=== PATIENT | male | born 1945 | race Caucasian/White ===

== ENCOUNTER → 2016-12-16 | Outpatient (CLI) | payer MEDICARE, BC ==
--- NOTE | 2016-12-16 14:30 | XR ---
EXAMINATION TYPE: XR abdomen 1V DATE OF EXAM: 12/16/2016 2:14 PM COMPARISON: NONE INDICATION: Stones right side TECHNIQUE: Single view abdomen FINDINGS: There is a normal bowel gas pattern. Psoas margins are normal. No organomegaly is present. A 1.3 cm calcification may be in the mid right kidney. Additional smaller adjacent calcifications may be present. These are not as dense as typically identified. IMPRESSION: 1. Right mid kidney renal stones
== END | disposition home or self-care (01) ==
LOC: RADXRMAIN 13:57
PROVIDERS: ATTEND Urology
DX: N20.0 Calculus of kidney (principal)
CPT/HCPCS: 74000; 84153

== ENCOUNTER → 2017-01-08 | Outpatient (CLI) | payer MEDICARE, BC ==
--- NOTE | 2017-01-08 12:01 | CT ---
EXAMINATION TYPE: CT abdomen pelvis wo con DATE OF EXAM: 01/08/2017 11:44 AM COMPARISON: NONE HISTORY: Patient has no complaints at time of study. Patient has probable right side renal stone. CT DLP: 1119 mGycm Automated exposure control for dose reduction was used. TECHNIQUE: Helical acquisition of images was performed from the lung bases through the pelvis. FINDINGS: LUNG BASES: Some reticulation with patchy groundglass opacity in the right lung base is present. Ther e is additional 7 x 4 mm oval nodular opacity right lateral lung base on axial image 1. LIVER/GB: Liver is diffusely low dense consistent with fatty infiltration. PANCREAS: No significant abnormality is seen. SPLEEN: No significant abnormality is seen. ADRENALS: No significant abnormality is seen. KIDNEYS: No renal stones or hydronephrosis is evident bilaterally. Thin linear density posteriorly in the bladder could reflect milk of calcium, tiny stones, debris, or some bladder wall calcification. Debris is favored given enlarged prostate gland. Scattered pelvic phleboliths are noted. RETROPERITONEAL ADENOPATHY: None visualized REPRODUCTIVE ORGANS: Prostate gland is heterogeneous in appearance and enlarged in size consistent wi th BPH, clinical correlation advised URINARY BLADDER: No significant abnormality is seen. PELVIC ADENOPATHY: None visualized. OSSEOUS STRUCTURES: There is multilevel spurring in the spine. There is transitional-type L6 vertebr a. There is subchondral cystic change and spurring right L5 L6 level. BOWEL: Evaluation bowel suboptimal due to lack of enteric contrast. No suspicious small or large bow el dilatation is present. There are scattered colonic diverticula most pronounced in the sigmoid colo n. There is no CT evidence for diverticulitis. Poor distention of transverse colon makes evaluation a t this level suboptimal. Mild wall thickening is present could be product of poor distention, a colit is is not entirely excluded. Normal-appearing appendix is seen and hernia right upper pelvis lateral to the rectus sheath or femoral type hernia superior to inguinal canal. OTHER: There is moderate to large sized fat-containing right inguinal hernia. There is small to moder ate-sized left inguinal hernia containing fat and small vessels. There is small fat-containing umbili salina hernia. IMPRESSION: 1. NO RENAL STONES OR HYDRONEPHROSIS IS EVIDENT BILATERALLY. 2. Enlarged prostate gland is redemonstrated and correlates with prostate ultrasound June 28, 2016. 3. A 7 x 4 mm nodule right lung base is noted. Follow-up chest CT is advised to assess for additional pulmonary nodules. 4. Note is made of femoral hernia containing normal-appearing appendix. Bilateral inguinal hernias ar e also noted.
== END | disposition home or self-care (01) ==
LOC: RADCTMAIN 11:26
PROVIDERS: ATTEND Urology
DX: N40.0 Benign prostatic hyperplasia without lower urinary tract symptoms (principal); K40.20 Bilateral inguinal hernia, without obstruction or gangrene, not specified as recurrent; K41.90 Unilateral femoral hernia, without obstruction or gangrene, not specified as recurrent
CPT/HCPCS: 74176

== ENCOUNTER → 2017-04-03 | Outpatient (CLI) | payer MEDICARE, BC ==
[2017-04-03 12:02] LABS: Blood Urea Nitrogen 37 mg/dL (9-20); Non-African American GFR(MDRD) 53 (>60 ml/min/1.73 sqM)
--- NOTE | 2017-04-03 14:23 | CT ---
EXAMINATION TYPE: CT ChestAbdPelvis w con DATE OF EXAM: 04/03/2017 1:52 PM COMPARISON: Prior CT abdomen pelvis January HISTORY: Non specific abnormal finding in lung field, UTI vs. kidney stones CT DLP: 1159.9 mGycm Automated exposure control for dose reduction was used. CONTRAST: CT scan of the chest, abdomen and pelvis is performed with Oral Contrast and with IV Contrast, patien t injected with 80 mL of Visipaque 320. FINDINGS: LUNGS: Subcentimeter nodularity is present bilaterally, the nodules are noncalcified, there is nodule in the left lower lobe, subpleural nodular in location, right lower lobe there are 3 nodules. MEDIASTINUM: There are no greater than 1 cm hilar or mediastinal lymph nodes. No pericardial effusi on is seen. AORTA: No significant abnormality is seen. OTHER: No additional significant abnormality is seen. LIVER/GB: The liver shows low attenuation possibly due to fatty infiltration, gallbladder is normal PANCREAS: No significant abnormality is seen. SPLEEN: No significant abnormality is seen. ADRENALS: No significant abnormality is seen. KIDNEYS: Distal right ureteral calculus is present measuring 12 x 5 mm at the level of ureterovesical orifice. There is hydronephrosis of the right kidney. Probable calculus at the level of the distal l eft ureteral ureter, high attenuation is present in the dependent portion of the bladder this level REPRODUCTIVE ORGANS: Prostate is enlarged and shows associated calcification BOWEL: Diverticular changes associated with the sigmoid colon, there is no bowel obstruction FREE AIR: No Free Air visible. ASCITES: None seen. RETROPERITONEAL ADENOPATHY: No retroperitoneal adenopathy is seen. LYMPH NODES: No greater than 1 cm abdominal or pelvic lymph nodes are appreciated. URINARY BLADDER: Findings of the distal ureter level as described PELVIC ADENOPATHY: None visualized. OSSEOUS STRUCTURES: No significant abnormality is seen. There are bilateral inguinal hernias. The appendix is present within the inguinal hernia on the right IMPRESSION: Distal right ureteral calculus at the level of ureterovesical orifice with hydroureter an d hydronephrosis. Possible distal left calcification, there is high attenuation in the dependent port ion of the bladder at this level. Diverticulosis. Prostatic enlargement. Fatty infiltration of the li allen. Indeterminate lower lobe lung nodules, follow-up to assess for stability, differential includes granulomatous disease but infectious and noninfectious, metastatic disease is within the differential .
== END | disposition home or self-care (01) ==
LOC: RADCTMAIN 11:14
PROVIDERS: ATTEND Family Medicine
DX: R91.8 Other nonspecific abnormal finding of lung field (principal); N20.1 Calculus of ureter; N13.4 Hydroureter; N13.30 Unspecified hydronephrosis; N40.0 Benign prostatic hyperplasia without lower urinary tract symptoms; K76.0 Fatty (change of) liver, not elsewhere classified
CPT/HCPCS: 82565; 84520; 71260; 74177; 36415; Q9967

== ENCOUNTER → 2017-05-06 | Outpatient (CLI) | payer MEDICARE, BC | END | disposition home or self-care (01) | LOC: LABWHC1 10:16 | PROVIDERS: ATTEND Urology | DX: R97.20 Elevated prostate specific antigen [PSA] (principal) | CPT/HCPCS: 36415; 84153 ==

== ENCOUNTER → 2017-10-16 | Outpatient (CLI) | payer MEDICARE, BC ==
--- NOTE | 2017-10-16 09:42 | CT ---
EXAMINATION TYPE: CT chest wo con DATE OF EXAM: 10/16/2017 COMPARISON: 04/03/2017 HISTORY: Solitary Pulmonary Nodule CT DLP: 381.9 mGycm, Automated exposure control for dose reduction was used. CONTRAST: Performed injected with 0 mL of Omnipaque 300. TECHNIQUE: Axial images were obtained at 5 mm thick sections. Reconstructed images are reviewed on [facility] computer in the coronal plane. FINDINGS: Portion of the thyroid visualized is normal. Subglottic airway is normal. There is a 0.4 cm peripheral based nodule within the right upper lobe. Series 4 image 27. This was pr esent previously. There is a peripheral nodule in the posterior lateral left upper lung field with a depth of 0.5 cm. This was present previously and is stable. Some lingular pneumonitis is present at t same level appears more extensive than previous. There is a 0.4 cm nodule in the posterior medial right superior segment lower lobe. Series 4 image 35 . This was present previously. There is a 0.6 cm nodule posterior medial right lung which is stable m easuring 0.6 cm. Series 4 image 36. Some pneumonitis changes within the right middle lobe appears unc hanged. There may be a subtle low density nodule within this region measuring 0.3 cm, present previou sly. Series 4 image 40. Some pneumonitis changes in the posterior right lung base. There is a oval no dule in the periphery of the right lower lobe posterior lateral lobe with a depth of 0.4 cm stable pr esent previously. Series 4 image 45. No enlarged mediastinal or hilar adenopathy is evident. The ascending aorta diameter at the level o f the main pulmonary artery is 3.8 cm. The main pulmonary artery diameter at the bifurcation is 2.3 cm. Minimal coronary artery calcifications present. Limited CT sections are obtained through the upper abdomen. Abdomen is essentially unremarkable. IMPRESSIONS: 1. Scattered small stable nodules present bilaterally. Continued monitoring to confirm stability over the course of 2 years is recommended. Follow-up chest CT in 6 months can be performed. 2. There are some areas of pneumonitis within the right middle lobe and periphery of the lingula whic h are slightly changed. These can be followed in 6 months.
== END | disposition home or self-care (01) ==
LOC: RADCTMAIN 06:57
PROVIDERS: ATTEND Family Medicine
DX: J18.9 Pneumonia, unspecified organism (principal); R91.8 Other nonspecific abnormal finding of lung field
CPT/HCPCS: 71250

== ENCOUNTER → 2018-04-21 | Outpatient (CLI) | payer MEDICARE, BC ==
--- NOTE | 2018-04-21 10:00 | CT ---
EXAMINATION TYPE: CT chest wo con DATE OF EXAM: 04/21/2018 COMPARISON: 10/16/2017, 04/03/2017 HISTORY: 72-year-old male Multiple lung nodules TECHNIQUE: Contiguous axial scanning of the chest without IV contrast. Coronal and sagittal reconstru ctions performed. CT DLP: 631 mGycm Automated exposure control for dose reduction was used. FINDINGS: Heart is normal size without pericardial effusion. Ascending aorta is ectatic at 3.8 cm. Conventional arch vessel branching anatomy. Upper descending th oracic aorta borderline ectatic at 3.0 cm. Mild bilateral gynecomastia. Scattered nonenlarged mediastinal lymph nodes. No thoracic lymphadenopat hy by CT size criteria. Some patchy subpleural interstitial and reticular changes anterior left upper lobe was present back o n 04/03/2017, possible chronic scarring. There is some associated traction bronchiectasis in the superi or lingula. Mild patchy groundglass peripheral lower lobes and basilar right middle lobe as well. Scattered bilateral pulmonary nodules measuring up to 7 mm are unchanged from 04/03/2017. Stability for one year suggests a benign etiology. Additional one-year follow-up is recommended No consolidation or pleural effusion. Small hiatal hernia. Visualized upper abdomen shows no gross abnormality. Hilar splenule. Bones: Endplate spondylosis mid to lower thoracic spine. No osseous destructive process. IMPRESSION: 1. SCATTERED PULMONARY NODULES MEASURING UP TO 7 MM ARE UNCHANGED FOR ONE YEAR. ADDITIONAL ONE-YEAR F OLLOW-UP IS RECOMMENDED TO DOCUMENT 2 YEARS OF STABILITY. 2. MILD PATCHY PERIPHERAL GROUNDGLASS AND RETICULAR DENSITIES MID AND LOWER LUNGS. THIS IS ALSO RELAT IVELY UNCHANGED FOR ONE YEAR. CORRELATE FOR POSSIBLE ETIOLOGIES SUCH DIP, NSIP, AND CHRONIC INTERS TITIAL SCARRING FROM PRIOR BOUTS OF INFECTION/INFLAMMATION. 3. SMALL HIATAL HERNIA.
== END | disposition home or self-care (01) ==
LOC: RADCTMAIN 08:44
PROVIDERS: ATTEND Family Medicine
DX: J98.4 Other disorders of lung (principal); K44.9 Diaphragmatic hernia without obstruction or gangrene; R91.8 Other nonspecific abnormal finding of lung field
CPT/HCPCS: 71250

== ENCOUNTER 2018-05-18 07:19 | Emergency (ER) | payer MEDICARE, BC ==
[2018-05-18 07:24] VITALS: RESP 18; TEMP 98.2
[2018-05-18] MEDS ORDERED: SODIUM CHLORIDE 0.9% 500 ML IV STA (07:43)
--- NOTE | 2018-05-18 08:00 | ED ---
General Adult HPI - General Chief complaint: Dizziness Stated complaint: Dizzy, High Blood Pressure Time Seen by Provider: 05/18/18 07:34 Source: patient, RN notes reviewed, old records reviewed Mode of arrival: wheelchair Limitations: no limitations - History of Present Illness Initial comments: 72-year-old male with no significant past medical history presents for evaluation of lightheadedness and what he believes to anxiety. 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 He also states also is being painted and he feels that the individuals painting his house for not doing a very good job. He believes that his symptoms are related to anxiety today however he felt he wanted to be checked out. He states that this morning he woke up felt somewhat lightheaded. He had been getting up to go to the bathroom which is typical for him as he does have BPH and remote history of prostate cancer. He states he felt lightheaded and diaphoretic. Denied any chest pain or palpitations at this time. Denied abdominal pain. He states he had some mild nausea however there is no vomiting. No diarrhea. He was otherwise well yesterday. - Related Data Home Medications Medication Instructions Recorded Confirmed Antronex 1 tab PO DAILY PRN 05/18/18 05/18/18 Aspirin 325 mg PO ONCE PRN 05/18/18 05/18/18 Calcium Carbonate [Calcium] 600 mg PO DAILY 05/18/18 05/18/18 Cetirizine HCl [Zyrtec] 10 mg PO DAILY 05/18/18 05/18/18 Cyanocobalamin (Vitamin B-12) 1,000 mcg PO DAILY 05/18/18 05/18/18 [Vitamin B-12] Naproxen Sodium [Aleve] 220 - 440 mg PO BID PRN 05/18/18 05/18/18 Tamsulosin HCl [Flomax] 0.4 mg PO HS 05/18/18 05/18/18 Vitamin D3(Unknown Dose) 1 tab PO DAILY 05/18/18 05/18/18 Allergies Allergy/AdvReac Type Severity Reaction Status Date / Time ciprofloxacin [From Cipro] Allergy Rash/Hives/ Verified 05/18/18 08:19 Swelling Review of Systems ROS Statement: Those systems with pertinent positive or pertinent negative responses have been documented in the HPI. ROS Other: All systems not noted in ROS Statement are negative. Past Medical History Past Medical History: Cancer Additional Past Medical History / Comment(s): prostate cancer History of Any Multi-Drug Resistant Organisms: None Reported Past Psychological History: Anxiety Smoking Status: Never smoker Past Alcohol Use History: Rare Past Drug Use History: None Reported General Exam Limitations: no limitations General appearance: alert, in no apparent distress Head exam: Present: atraumatic, normocephalic Eye exam: Present: normal appearance, PERRL ENT exam: Present: normal exam Neck exam: Present: normal inspection. Absent: tenderness, meningismus Respiratory exam: Present: normal lung sounds bilaterally. Absent: respiratory distress, wheezes Cardiovascular Exam: Present: regular rate, normal rhythm GI/Abdominal exam: Present: soft. Absent: distended, tenderness Extremities exam: Present: normal inspection, normal capillary refill. Absent: pedal edema Neurological exam: Present: alert, oriented X3, CN II-XII intact, other (No ataxia,). Absent: motor sensory deficit Psychiatric exam: Present: anxious Skin exam: Present: warm, dry, intact. Absent: cyanosis, diaphoretic Course Vital Signs 05/18/18 05/18/18 07:22 09:27 Temperature 98.2 F Pulse Rate 73 60 Respiratory 18 18 Rate Blood Pressure 164/81 161/80 O2 Sat by Pulse 98 100 Oximetry EKG Findings - EKG Comments: EKG Findings:: EKG: Sinus bradycardia, left axis deviation, no ST segment changes, rate of 55, AL interval 150, QRS duration 88, QTC 441 Medical Decision Making - Medical Decision Making 72-year-old male presenting with lightheadedness. Patient is stress, feels this may be related to his anxiety. Denies any focal weakness or numbness. Denies chest pain or shortness of breath. EKG shows sinus bradycardia rate of 55 no definitive signs of ischemia her workup reveals normal CBC, normal white blood cell count 5.8, stable hemoglobin of 14.1, normal electrolytes. Troponin is negative. Urinalysis is negative. Chest x-ray shows no acute findings. On reevaluation patient is feeling much better. He has a nonfocal neuro exam. No ataxia. Patient is mildly hypertensive but otherwise vitals are stable. He is eager for discharge, he will follow-up with his primary care physician. He will return with any worsening or changing symptoms. - Lab Data Result diagrams: 05/18/18 08:20 05/18/18 08:20 Lab Results 05/18/18 05/18/18 05/18/18 Range/Units 08:20 08:20 08:20 WBC 5.8 (3.8-10.6) k/uL RBC 4.55 (4.30-5.90) m/uL Hgb 14.1 (13.0-17.5) gm/dL Hct 39.6 (39.0-53.0) % MCV 87.0 (80.0-100.0) fL MCH 31.0 (25.0-35.0) pg MCHC 35.6 (31.0-37.0) g/dL RDW 12.0 (11.5-15.5) % Plt Count 204 (150-450) k/uL Neutrophils % 78 % Lymphocytes % 11 % Monocytes % 7 % Eosinophils % 2 % Basophils % 1 % Neutrophils # 4.5 (1.3-7.7) k/uL Lymphocytes # 0.6 L (1.0-4.8) k/uL Monocytes # 0.4 (0-1.0) k/uL Eosinophils # 0.1 (0-0.7) k/uL Basophils # 0.0 (0-0.2) k/uL PT 10.8 (9.0-12.0) sec INR 1.1 (<1.2) Sodium 141 (137-145) mmol/L Potassium 4.2 (3.5-5.1) mmol/L Chloride 104 (98-107) mmol/L Carbon Dioxide 24 (22-30) mmol/L Anion Gap 13 mmol/L BUN 28 H (9-20) mg/dL Creatinine 1.06 (0.66-1.25) mg/dL Est GFR (CKD-EPI)AfAm 80 (>60 ml/min/1.73 sqM) Est GFR (CKD-EPI)NonAf 69 (>60 ml/min/1.73 sqM) Glucose 116 H (74-99) mg/dL Calcium 9.4 (8.4-10.2) mg/dL Total Bilirubin 0.5 (0.2-1.3) mg/dL AST 29 (17-59) U/L ALT 31 (21-72) U/L Alkaline Phosphatase 47 (38-126) U/L Troponin I (0.000-0.034) ng/mL Total Protein 6.9 (6.3-8.2) g/dL Albumin 4.3 (3.5-5.0) g/dL Urine Color Urine Appearance (Clear) Urine pH (5.0-8.0) Ur Specific Prince (1.001-1.035) Urine Protein (Negative) Urine Glucose (UA) (Negative) Urine Ketones (Negative) Urine Blood (Negative) Urine Nitrite (Negative) Urine Bilirubin (Negative) Urine Urobilinogen (<2.0) mg/dL Ur Leukocyte Esterase (Negative) Urine RBC (0-5) /hpf Urine WBC (0-5) /hpf Urine Mucus (None) /hpf 05/18/18 05/18/18 Range/Units 08:20 08:20 WBC (3.8-10.6) k/uL RBC (4.30-5.90) m/uL Hgb (13.0-17.5) gm/dL Hct (39.0-53.0) % MCV (80.0-100.0) fL MCH (25.0-35.0) pg MCHC (31.0-37.0) g/dL RDW (11.5-15.5) % Plt Count (150-450) k/uL Neutrophils % % Lymphocytes % % Monocytes % % Eosinophils % % Basophils % % Neutrophils # (1.3-7.7) k/uL Lymphocytes # (1.0-4.8) k/uL Monocytes # (0-1.0) k/uL Eosinophils # (0-0.7) k/uL Basophils # (0-0.2) k/uL PT (9.0-12.0) sec INR (<1.2) Sodium (137-145) mmol/L Potassium (3.5-5.1) mmol/L Chloride (98-107) mmol/L Carbon Dioxide (22-30) mmol/L Anion Gap mmol/L BUN (9-20) mg/dL Creatinine (0.66-1.25) mg/dL Est GFR (CKD-EPI)AfAm (>60 ml/min/1.73 sqM) Est GFR (CKD-EPI)NonAf (>60 ml/min/1.73 sqM) Glucose (74-99) mg/dL Calcium (8.4-10.2) mg/dL Total Bilirubin (0.2-1.3) mg/dL AST (17-59) U/L ALT (21-72) U/L Alkaline Phosphatase (38-126) U/L Troponin I <0.012 (0.000-0.034) ng/mL Total Protein (6.3-8.2) g/dL Albumin (3.5-5.0) g/dL Urine Color Yellow Urine Appearance Clear (Clear) Urine pH 5.0 (5.0-8.0) Ur Specific Prince 1.015 (1.001-1.035) Urine Protein Negative (Negative) Urine Glucose (UA) Negative (Negative) Urine Ketones Negative (Negative) Urine Blood Trace H (Negative) Urine Nitrite Negative (Negative) Urine Bilirubin Negative (Negative) Urine Urobilinogen <2.0 (<2.0) mg/dL Ur Leukocyte Esterase Negative (Negative) Urine RBC 2 (0-5) /hpf Urine WBC <1 (0-5) /hpf Urine Mucus Rare H (None) /hpf Disposition Clinical Impression: Dehydration, Lightheaded Disposition: HOME SELF-CARE Condition: Good Instructions: Dizziness (ED) Additional Instructions: Please return with any worsening or changing symptoms. Follow-up with primary care physician. Is patient prescribed a controlled substance at d/c from ED?: No Referrals: Wayne Hall MD [Primary Care Provider] - 1-2 days Time of Disposition: 10:07
[2018-05-18 08:32] LABS: Basophils % (A) 1 %; Eosinophils # (A) 0.1 k/uL (0-0.7); Eosinophils % (A) 2 %; HCT 39.6 % (39.0-53.0); HGB 14.1 gm/dL (13.0-17.5); Lymphocytes # (A) 0.6 k/uL (1.0-4.8); Lymphocytes % (A) 11 %; MCHC 35.6 g/dL (31.0-37.0); Mean Platelet Volume 6.1; Monocytes # (A) 0.4 k/uL (0-1.0); Monocytes % (A) 7 %; Neutrophils # (A) 4.5 k/uL (1.3-7.7); Neutrophils % (A) 78 %; Platelet Count 204 k/uL (150-450); RBC 4.55 m/uL (4.30-5.90); WBC 5.8 k/uL (3.8-10.6)
[2018-05-18 08:41] LABS: Albumin 4.3 g/dL (3.5-5.0); Calcium 9.4 mg/dL (8.4-10.2); Potassium 4.2 mmol/L (3.5-5.1); Total Bilirubin 0.5 mg/dL (0.2-1.3); Total Protein 6.9 g/dL (6.3-8.2)
[2018-05-18 08:42] LABS: INR 1.1 (<1.2); Prothrombin Time 10.8 sec (9.0-12.0)
[2018-05-18 08:51] LABS: Appearance,Urine Clear (Clear); Bilirubin,Urine Negative (Negative); Blood,Urine Trace (Negative); Color,Urine Yellow; Glucose,Urine (UA) Negative (Negative); Ketones,Urine Negative (Negative); Leukocyte Esterase,Urine Negative (Negative); Mucus,Urine Rare /hpf; Nitrite,Urine Negative (Negative); Protein,Urine Negative (Negative); RBC,Urine 2 /hpf (0-5); Specific Gravity,Urine 1.015 (1.001-1.035); Urobilinogen,Urine <2.0 mg/dL (<2.0); WBC,Urine <1 /hpf (0-5)
--- NOTE | 2018-05-18 09:42 | XR ---
EXAMINATION TYPE: XR chest 2V DATE OF EXAM: 05/18/2018 COMPARISON: Chest CT April 21, 2018. HISTORY: Syncope and weakness, history of prostate cancer TECHNIQUE: Frontal and lateral views of the chest are obtained. FINDINGS: There is chronic left mid to basilar reticulation and fibrosis predominantly peripheral. R ight lung appears grossly clear . No pleural effusion or pneumothorax is evident bilaterally. The car diac silhouette size is within normal limits. The osseous structures are intact. IMPRESSION: Chronic left lower lung parenchymal changes without suspicious acute pulmonary process.
[2018-05-18 10:13] VITALS: BP 140/61; PULSE 66
== END 2018-05-18 10:26 | disposition home or self-care (01) ==
LOC: EC 07:19
DX: E86.0 Dehydration (principal); R00.1 Bradycardia, unspecified; F41.9 Anxiety disorder, unspecified; R03.0 Elevated blood-pressure reading, without diagnosis of hypertension; C61 Malignant neoplasm of prostate; Z88.1 Allergy status to other antibiotic agents; Z79.899 Other long term (current) drug therapy
CPT/HCPCS: 36415; 71046; 80053; 81001; 84484; 85025; 85610; 93005; 96360; 99284

== ENCOUNTER → 2018-06-01 | Outpatient (CLI) | payer MEDICARE, BC ==
--- NOTE | 2018-06-01 17:19 | US ---
EXAMINATION TYPE: US carotid duplex BILAT DATE OF EXAM: 06/01/2018 COMPARISON: NONE CLINICAL HISTORY: R09.89 Symptom involving circ and resp systems. Pt states recent episode of dizzine ss EXAM MEASUREMENTS: RIGHT: Peak Systolic Velocity (PSV) cm/sec ----- Right CCA: 85.1 ----- Right ICA: 91.9 ----- Right ECA: 94.7 ICA/CCA ratio: 1.1 RIGHT: End Diastole cm/sec ----- Right CCA: 16.2 ----- Right ICA: 30.3 ----- Right ECA: 0.0 LEFT: Peak Systolic Velocity (PSV) cm/sec ----- Left CCA: 87.5 ----- Left ICA: 90.8 ----- Left ECA: 56.7 ICA/CCA ratio: 1.0 LEFT: End Diastole cm/sec ----- Left CCA: 14.9 ----- Left ICA: 27.0 ----- Left ECA: 0.0 VERTEBRALS (direction of flow): Right Vertebral: Antegrade Left Vertebral: Antegrade Rhythm: Normal No significant stenosis seen IMPRESSION: There is antegrade flow in the vertebral arteries. The images and measurements suggest l ess than 20% stenosis in both internal carotid arteries. Criteria for Assigning % of Stenosis / Diameter reduction (Estimation based on the indirect measurements of the internal carotid artery velocities (ICA PSV). 1. Normal (no stenosis)=ICA PSV < 125 cm/s: ratio < 2.0: ICA EDV<40 cm/s. 2. Less than 50% stenosis=ICA PSV < 125 cm/s: ratio < 2.0: ICA EDV<40 cm/s. 3. 50 to 69% stenosis=ICA PSV of 125 to 230 cm/s: ration 2.0 ? 4.0: ICA EDV 40-100 cm/s. 4. Greater than 70% stenosis to near occlusion= ICA PSV > 230 cm/s: ratio > 4.0: ICA EDV > 100 cm/s. 5. Near occlusion= ICA PSV velocities may be low or undetectable: variable ratio and ICA EDV. 6. Total occlusion=unable to detect flow.
== END | disposition home or self-care (01) ==
LOC: RADUSWWP 16:45
PROVIDERS: ATTEND Family Medicine
DX: R09.89 Other specified symptoms and signs involving the circulatory and respiratory systems (principal)
CPT/HCPCS: 93880

== ENCOUNTER → 2018-09-11 | Outpatient (CLI) | payer MEDICARE, BC ==
--- NOTE | 2018-09-11 10:01 | XR ---
EXAMINATION TYPE: XR KUB DATE OF EXAM: 09/11/2018 COMPARISON: None INDICATION: Kidney stone right TECHNIQUE: Single view abdomen spine view FINDINGS: There is a normal bowel gas pattern. Psoas margins are normal. No organomegaly is present. Patient's right renal or ureteral stone is not clearly identified. There appear to be phleboliths wit hin the pelvis. IMPRESSION: 1. Nonspecific abdomen.
== END ==
LOC: RADXRMAIN 09:10
PROVIDERS: ATTEND Urology
DX: N20.0 Calculus of kidney (principal)
CPT/HCPCS: 74018

== ENCOUNTER → 2021-06-05 | Outpatient (CLI) | payer MEDICARE, BC ==
--- NOTE | 2021-06-05 09:01 | CT ---
EXAMINATION TYPE: CT chest wo con DATE OF EXAM: 06/05/2021 COMPARISON: Chest CT April 21, 2018 and older studies HISTORY: Multiple lung nodules CT DLP: 334.6 mGycm. Automated Exposure Control for Dose Reduction was Utilized. TECHNIQUE: CT scan of the thorax is performed without IV contrast. FINDINGS: LUNGS: Mild biapical pleural/parenchymal scarring extending anteriorly redemonstrated. More moderate peripheral scarring in the anterior mid to lower lungs and moderate scarring and reticular changes in the lung bases. Scattered small nodules redemonstrated. For reference one of larger nodules measure 6 x 4 mm posterior superior right lower lobe axial image 36. This is stable. Stable 8 x 5 mm subpleur al nodule left lower lobe superiorly axial image 34 noted. No new or enlarging greater than 5 mm nodu les. No pleural effusion or pneumothorax. MEDIASTINUM: Lack of IV contrast is noted to limit evaluation for mediastinal and especially hilar ad enopathy. There are no definitive new greater than 1 cm hilar or mediastinal lymph nodes. No cardio megaly or pericardial effusion is seen. Mild coronary artery calcification. Heterogeneous calcified l eft thyroid lobe or nodule is stable. OTHER: Bilateral subareolar flame-shaped gynecomastia. Multilevel spurring in the spine. Visualized l iver low densities consistent with mild diffuse fatty infiltration. IMPRESSION: Scattered small nodules stable. Stable [id number] parenchymal fibrotic changes. No new or enlarging nodules.
== END | disposition home or self-care (01) ==
LOC: RADCTMAIN 07:20
PROVIDERS: ATTEND Family Medicine
DX: R91.8 Other nonspecific abnormal finding of lung field (principal); J84.10 Pulmonary fibrosis, unspecified
CPT/HCPCS: 71250

== ENCOUNTER → 2023-11-03 | Outpatient (CLI) | payer MEDICARE, BC ==
--- NOTE | 2023-11-03 11:47 | CA ---
Stress Echo Report Jan Staples Age: 77 Gender: M : 1945 Exam Date: 11/03/2023 10:31 Exam Location: [facility] Ht (in): 71 Wt (lb): 206 Ordering Physician: Wayne Hall MD Referring Physician: Isabel SOUSA Radio Sportscaster: Lillian CRUZ Technologist Procedure CPT: Indication: R06.00 Dyspnea ICD-9 Codes: Rhythm: Patient History: Cardiac Medications: Medications in past 24 hours: Contrast: N/A Stress Results Protocol: Timi Total dose(mL): Exercise Duration (min:sec): 3:[address] Depression (mm): Angina Score: Cabrera Score: METS: 4.6 Resting HR: 83 Resting BP: 158 / 91 Peak HR: 132 Peak BP: 199 / 105 Max Predicted HR: 141 94 % Max Predicted HR Target HR: 120 Double Product: [id number] Stress Summary: BP Response: Reason for Termination: Reached target heart rate or work-load Cardiac Symptoms: No Symptoms ECG Analysis Resting ECG: Stress ECG: Arrhythmia: Echo Analysis Resting Echo: Peak Echo Analysis: MEASUREMENTS (Male/Female) Normal Values CONCLUSIONS Good exercise tolerance Normal electrocardiogram and echocardiogram in response to exercise Dr. Wolf Pearce MD (Electronically Signed) Final Date: 03 November 2023 11:46
== END | disposition home or self-care (01) ==
LOC: RADNMMAIN 09:29
PROVIDERS: ATTEND Family Medicine
DX: R06.00 Dyspnea, unspecified (principal)
CPT/HCPCS: 93351

== ENCOUNTER 2024-05-16 11:46 | Inpatient (IN) | payer MEDICARE, BC ==
[2024-05-16] MEDS: HEPARIN SODIUM 1,000 UN/ML (10ML VL) IV ONE (11:57)
--- NOTE | 2024-05-16 12:00 | ED ---
General Adult HPI - General Stated complaint: STEMI Time Seen by Provider: 05/16/24 11:46 Source: patient, RN notes reviewed, old records reviewed - History of Present Illness Initial comments: This is an 78-year-old male who presents to the emergency department with a past medical history significant for high cholesterol. Patient states he had no heart disease in the past. Patient states he woke up this morning felt fine and also that he started getting severe chest tightness. Patient states that he is became very diaphoretic and then continued. Patient states when EMS arrived they gave him aspirin and eventually nitroglycerin he states the 2 nitroglycerin did seem to help relieve the pain even though he is still having it it is much improved. Patient denies any nausea or vomiting. Patient states he is mildly short of breath. Patient denies any recent fever chills or cough. Patient denies any back pain. Patient [place] any radiation of the pain - Related Data Home Medications Medication Instructions Recorded Confirmed Antronex 1 tab PO DAILY PRN 05/18/18 05/18/18 Aspirin 325 mg PO ONCE PRN 05/18/18 05/18/18 Calcium Carbonate [Calcium] 600 mg PO DAILY 05/18/18 05/18/18 Cetirizine HCl [Zyrtec] 10 mg PO DAILY 05/18/18 05/18/18 Cyanocobalamin (Vitamin B-12) 1,000 mcg PO DAILY 05/18/18 05/18/18 [Vitamin B-12] Naproxen Sodium [Aleve] 220 - 440 mg PO BID PRN 05/18/18 05/18/18 Tamsulosin HCl [Flomax] 0.4 mg PO HS 05/18/18 05/18/18 Vitamin D3(Unknown Dose) 1 tab PO DAILY 05/18/18 05/18/18 Allergies Allergy/AdvReac Type Severity Reaction Status Date / Time ciprofloxacin [From Cipro] Allergy Rash/Hives/ Verified 05/18/18 08:19 Swelling Review of Systems ROS Statement: Those systems with pertinent positive or pertinent negative responses have been documented in the HPI. ROS Other: All systems not noted in ROS Statement are negative. Past Medical History Past Medical History: Cancer Additional Past Medical History / Comment(s): prostate cancer History of Any Multi-Drug Resistant Organisms: None Reported Past Psychological History: Anxiety Past Alcohol Use History: Rare Past Drug Use History: None Reported General Exam - General Exam Comments Initial Comments: GENERAL: Patient is well-developed and well-nourished. Patient is nontoxic and well- hydrated and is in mild distress. ENT: Neck is soft and supple. No significant lymphadenopathy is noted. Oropharynx is clear. Moist mucous membranes. Neck has full range of motion without eliciting any pain. EYES: The sclera were anicteric and conjunctiva were pink and moist. Extraocular movements were intact and pupils were equal round and reactive to light. Eyelids were unremarkable. PULMONARY: Unlabored respirations. Good breath sounds bilaterally. No audible rales rhonchi or wheezing was noted. CARDIOVASCULAR: There is a regular rate and rhythm without any murmurs gallops or rubs. ABDOMEN: Soft and nontender with normal bowel sounds. SKIN: Skin is clear with no lesions or rashes and otherwise unremarkable. NEUROLOGIC: Patient is alert and oriented x3. Cranial nerves II through XII are grossly intact. Motor and sensory are also intact. Normal speech, volume and content. Symmetrical smile. MUSCULOSKELETAL: Normal extremities with adequate strength and full range of motion. LYMPHATICS: No significant lymphadenopathy is noted PSYCHIATRIC: Normal psychiatric evaluation. Medical Decision Making - Medical Decision Making EKG is interpreted by myself but EKG shows sinus tachycardia with occasional PVC at 108 bpm parable 174 QRS 94 QT interval 368 QTc is 431. Patient's EKG shows ST segment elevation in leads V1 and V2. Was pt. sent in by a medical professional or institution ([facility], TRAFFIC SIGNAL REPAIRER, urgent care, hospital, or custodial...) When possible be specific @ -No Did you speak to anyone other than the patient for history (EMS, parent, family, police, friend...)? What history was obtained from this source @ -EMS informed us of what they gave him and the response to the nitroglycerin they gave as well. Did you review nursing and triage notes (agree or disagree)? Why? @ -I reviewed and agree with nursing and triage notes Were old charts reviewed (outside hosp., previous admission, EMS record, old EKG, old radiological studies, urgent care reports/EKG's, custodial records)? Report findings @ -No old charts were reviewed Differential Diagnosis (chest pain, altered mental status, abdominal pain women, abdominal pain men, vaginal bleeding, weakness, fever, dyspnea, syncope, headache, dizziness, GI bleed, back pain, seizure, CVA, palpatations, mental health, musculoskeletal)? @ -Differential Chest Pain: Stable Angina, Unstable Angina, STEMI, NSTEMI Aortic Dissection, Pneumothorax, Musculoskeletal, Esophageal Spasm GERD, Cholecystitis, Pancreatitis, Zoster, this is not meant to be an all-inclusive list. EKG interpreted by me (3pts min.). @ -As above X-rays interpreted by me (1pt min.). @ -Chest x-ray showed no acute abnormality CT interpreted by me (1pt min.). @ -None done U/S interpreted by me (1pt. min.). @ -None done What testing was considered but not performed or refused? (CT, X-rays, U/S, labs)? Why? @ -None What meds were considered but not given or refused? Why? @ -None Did you discuss the management of the patient with other professionals (professionals i.e. , PA, TRAFFIC SIGNAL REPAIRER, lab, RT, psych nurse, social media job titles, vehicle monitor technician, teacher, environmental technical officer, field nurse case manager)? Give summary @ -I spoke with Dr. Mijares about the STEMI Was smoking cessation discussed for >3mins.? @ -No Was critical care preformed (if so, how long)? @ -35 minutes Were there social determinants of health that impacted care today? How? (Homelessness, low income, unemployed, alcoholism, drug addiction, transportation, low edu. Level, literacy, decrease access to med. care, care home, rehab)? @ -No Was there de-escalation of care discussed even if they declined (Discuss DNR or withdrawal of care, Hospice)? DNR status @ -No What co-morbidities impacted this encounter? (DM, HTN, Smoking, COPD, CAD, Cancer, CVA, ARF, Chemo, Hep., AIDS, mental health diagnosis, sleep apnea, morbid obesity)? @ -None Was patient admitted / discharged? Hospital course, mention meds given and route, prescriptions, significant lab abnormalities, going to OR and other pertinent info. @ -Patient was feeling better when he arrived after 2 nitroglycerin patient's vitals were stable. Patient was given 4000 of heparin. Patient will be taken to the [facility] by Dr. Mijares. STEMI was called overhead prior to the patient's arrival. Undiagnosed new problem with uncertain prognosis? @ -No Drug Therapy requiring intensive monitoring for toxicity (Heparin, Nitro, Insulin, Cardizem)? @ -No Were any procedures done? @ -No Diagnosis/symptom? @ -Default Acute, or Chronic, or Acute on Chronic? @ -STEMI acute Uncomplicated (without systemic symptoms) or Complicated (systemic symptoms)? @ -Complicated Side effects of treatment? @ -No Exacerbation, Progression, or Severe Exacerbation? @ -No Poses a threat to life or bodily function? How? (Chest pain, [place], CO, pneumonia, PE, COPD, DKA, ARF, appy, cholecystitis, CVA, Diverticulitis, Homicidal, Suicidal, threat to staff... and all critical care pts) @ -Yes this could lead to an CO heart damage and perfusion issues in the future with endorgan dysfunction Disposition Clinical Impression: STEMI (ST elevation myocardial infarction) Disposition: ADMITTED IP TO THIS HOSP Referrals: Wayne Hall MD [Primary Care Provider] - 1-2 days Time of Disposition: 11:59
[2024-05-16 12:02] LABS: Basophils # (A) 0.1 k/uL (0-0.2); Basophils % (A) 1 %; Eosinophils # (A) 0.2 k/uL (0-0.7); Eosinophils % (A) 2 %; HCT 47.1 % (39.0-53.0); HGB 15.5 gm/dL (13.0-17.5); Lymphocytes # (A) 1.3 k/uL (1.0-4.8); Lymphocytes % (A) 14 %; MCH 30.1 pg (25.0-35.0); MCHC 32.9 g/dL (31.0-37.0); MCV 91.3 fL (80.0-100.0); Mean Platelet Volume 7.2; Monocytes # (A) 0.6 k/uL (0-1.0); Monocytes % (A) 7 %; Neutrophils # (A) 6.8 k/uL (1.3-7.7); Neutrophils % (A) 74 %; Platelet Count 205 k/uL (150-450); RBC 5.17 m/uL (4.30-5.90); RDW 12.7 % (11.5-15.5); WBC 9.1 k/uL (3.8-10.6)
[2024-05-16] MEDS ORDERED: LIDOCAINE 1% INJ 10MG/ML (20 ML MDV) ONE (12:03)
[2024-05-16] MEDS: IV FLUID CONTINUATION 1,000 ML IV ONE (12:05)
--- NOTE | 2024-05-16 12:06 | P.CRDCN ---
History of Present Illness Consult date: 05/16/24 History of present illness: HISTORY OF PRESENTING ILLNESS 78-year-old male with past medical history of prostate cancer s/p radiation therapy and resection done 30 years ago. He does have history of dyslipidemia. He presented to the hospital with substernal chest pressure-like symptoms. He woke up around 9 AM today and after waking up he started noticing substernal chest pressure-like and heaviness sensation. This was getting intense and he started having diaphoresis and some nausea without vomiting. He also had some difficulty taking deep breaths. EMS was called, bedside ECG showed possible ST elevations in V1 V2 and aVL. Patient received sublingual nitroglycerin on the way to home which resolved his substernal chest pain to 2/10 in intensity from 10/10. On arrival he was hemodynamically stable, sinus tachycardic, repeat ECG shows ST elevation in V1 V2 and aVL with some reciprocal changes in inferior leads. No signs of congestive heart failure or cardiogenic shock at this time Patient denies any bleeding diathesis he is not on any blood thinners. He is not on any aspirin prior to coming to the hospital. He denies any history of strokes. He denies any active history of smoking recreational drug use marijuana use or alcohol use. Bedside echocardiogram was performed which shows an LVEF of 50 to 55% with anteroseptal wall hypokinesia. REVIEW OF SYSTEMS 14 point review of system is negative except what is mentioned above in HPI. PHYSICAL EXAMINATION Vital signs reviewed. Head: Normocephalic. Eyes: Sclerae nonicteric. Neck: Brisk carotid upstroke, no jugular venous distention. Lungs: Clear to auscultation. Heart: Regular rate and rhythm, S1-S2, no S3, no murmur or rub. Abdomen: Soft nontender, positive bowel sounds. Extremities: No edema, intact distal pulses. Neuro: Alert, oritented, no focal deficits. Detailed neuro exam was not performed. ASSESSMENT Anteroseptal STEMI PLAN Plan for emergent cardiac catheterization. Risk factors and procedural steps of cardiac catheterization including stroke CA were explained to the patient. Risk of emergent vascular surgery cardiac surgery was also discussed. Patient agrees to proceed. Further recommendations to follow cardiac cath results obtain echocardiogram Javier Mijares MD, FACC, RPVI Thank you for allowing [facility] to participate in thi s patient's care. Feel free to reach out in case of any followup questions. Past Medical History Past Medical History: Cancer Additional Past Medical History / Comment(s): prostate cancer History of Any Multi-Drug Resistant Organisms: None Reported Past Psychological History: Anxiety Past Alcohol Use History: Rare Past Drug Use History: None Reported Medications and Allergies Home Medications Medication Instructions Recorded Confirmed Type Antronex 1 tab PO DAILY PRN 05/18/18 05/18/18 History Aspirin 325 mg PO ONCE PRN 05/18/18 05/18/18 History Calcium Carbonate [Calcium] 600 mg PO DAILY 05/18/18 05/18/18 History Cetirizine HCl [Zyrtec] 10 mg PO DAILY 05/18/18 05/18/18 History Cyanocobalamin (Vitamin B-12) 1,000 mcg PO DAILY 05/18/18 05/18/18 History [Vitamin B-12] Naproxen Sodium [Aleve] 220 - 440 mg PO BID PRN 05/18/18 05/18/18 History Tamsulosin HCl [Flomax] 0.4 mg PO HS 05/18/18 05/18/18 History Vitamin D3(Unknown Dose) 1 tab PO DAILY 05/18/18 05/18/18 History Allergies Allergy/AdvReac Type Severity Reaction Status Date / Time ciprofloxacin [From Cipro] Allergy Rash/Hives/ Verified 05/16/24 11:56 Swelling Physical Exam Vitals: Vital Signs Temp Pulse Resp BP Pulse Ox 05/16/24 11:52 98 F 103 H 20 177/117 96 Intake and Output 05/15/24 05/16/24 05/16/24 22:59 06:59 14:59 Other: Weight 92.533 kg Results 05/16/24 11:50 CBC 05/16/24 Range/Units 11:50 WBC 9.1 (3.8-10.6) k/uL RBC 5.17 (4.30-5.90) m/uL Hgb 15.5 (13.0-17.5) gm/dL Hct 47.1 (39.0-53.0) % Plt Count 205 (150-450) k/uL Intake and Output 05/15/24 05/16/24 05/16/24 22:59 06:59 14:59 Other: Weight 92.533 kg Patient Weight 05/17/24 06:59 Weight 92.533 kg 05/16/24 11:50
[2024-05-16] MEDS ORDERED: VERAPAMIL 2.5 MG/ML 2 ML AMP ONE ×2 (12:09→12:23)
[2024-05-16] MEDS ORDERED: fentaNYL (PF) 50 MCG/ML 2 ML AMP ONE (12:11)
[2024-05-16] MEDS: VERAPAMIL SYRINGE (5 MG/10 ML) INTRAARTER ONE ×2 (12:14→12:26)
[2024-05-16] MEDS: LIDOCAINE 1% INJ 10MG/ML (20 ML MDV) SQ ONE (12:14)
[2024-05-16] MEDS: MIDAZOLAM 2 MG/2 ML VIAL IVP ONE (12:16)
[2024-05-16] MEDS: fentaNYL (PF) 50 MCG/ML 2 ML AMP IVP ONE (12:16)
[2024-05-16] MEDS ORDERED: HEPARIN SODIUM 1,000 UN/ML (10ML VL) ONE (12:17)
--- NOTE | 2024-05-16 12:18 | XR ---
EXAMINATION TYPE: XR chest 1V portable DATE OF EXAM: 05/16/2024 12:01 PM CLINICAL INDICATION:Male, 78 years old with history of chest pain; H COMPARISON: Chest radiographs from 05/18/2018 TECHNIQUE: XR chest 1V portable Frontal view of the chest. FINDINGS: Lungs/Pleura: Prominent interstitial lung markings are seen scattered throughout the lungs. No eviden ce of focal consolidation, pneumothorax or pleural effusion. Pulmonary vascularity: Unremarkable. Heart/mediastinum: Cardiomediastinal silhouette is unremarkable. Musculoskeletal: No acute osseous pathology. IMPRESSION: Chronic changes without acute pulmonary process. No significant change from prior.
[2024-05-16] MEDS: HEPARIN SODIUM 1,000 UN/ML (10ML VL) IVP ONE (12:20)
[2024-05-16] MEDS: SODIUM CHLORIDE 0.9% 1,000 ML IV ONE (12:21)
[2024-05-16 12:22] LABS: ALT 29 U/L (4-49); AST 36 U/L (17-59); African American GFR (CKD) >90 (>60 ml/min/1.73 sqM); Albumin 4.2 g/dL (3.5-5.0); Alkaline Phosphatase 69 U/L (38-126); Anion Gap 7 mmol/L; Blood Urea Nitrogen 22 mg/dL (9-20); Calcium 8.8 mg/dL (8.4-10.2); Carbon Dioxide 26 mmol/L (22-30); Chloride 107 mmol/L (98-107); Glucose 181 mg/dL (74-99); Magnesium 2.1 mg/dL (1.6-2.3); Non-African American GFR(CKD) 83 (>60 ml/min/1.73 sqM); Potassium 3.6 mmol/L (3.5-5.1); Sodium 140 mmol/L (137-145); Total Bilirubin 1.4 mg/dL (0.2-1.3); Total Protein 6.9 g/dL (6.3-8.2)
[2024-05-16] MEDS ORDERED: TICAGRELOR 90 MG TAB ONE (12:26)
[2024-05-16] MEDS: TICAGRELOR 90 MG TAB PO ONE (12:26)
--- NOTE | 2024-05-16 12:41 | P.CARDCATH ---
Date of Procedure: 05/16/24 Description of Procedure: DIAGNOSTIC CORONARY ANGIOGRAPHY and LEFT HEART CATH REPORT PROCEDURES PERFORMED: Left heart catheterization Selective coronary angiography Moderate conscious sedation 15 mins Right radial access INDICATION: Anteroseptal STEMI CONSENT: I have explained the procedural steps of above-mentioned procedures in layman's terms to the patient. I discussed the risks (including but not limited to stroke, emergent vascular or cardiac surgery or ), benefits and alternative therapies for the above-mentioned procedure. I discussed the risks of sedation/analgesia and blood product administration (if indicated). The patient has indicated understanding and acceptance of these risks. Conscious Sedation: Patient's ECG, heart rate, blood pressure, pulse oximetry were monitored throughout the duration of procedure under my direct supervision. 1 mg Versed and 50 mg Fentanyl were used for induction of moderate conscious sedation. Total duration of moderate concious sedation 15 minutes. Complications: None Blood loss less than 20 minutes Radiation 115 mGy Isovue contrast 60 minutes PROCEDURE: After explaining the risks, benefits and alternatives of the above mentioned procedures in detail to the patient, informed consent was obtained. Patient was taken to the catheterization lab, prepped and draped in usual sterile fashion using universal precuations. Barbow and yoni test were performed to confirm adequate perfusion to fingers. Ultrasound was used to identify the radial artery. 1% lidocaine was infiltrated over the right radial artery. A 6-Namibian sheath was placed and secured in the right radial artery using modified Seldinger technique. The sheath was flushed and 5 mg verapamil was administered intra-arterially. J tipped wire was advanced under fluoroscopic guidance. Once the wire tip reached aortic root 2500 units of IV heparin was given. Patient received 325 aspirin and 4000 U heparin in the ER. Over the wire JR4 diagnostic catheter was advanced. The wire in place the catheter was manipulated to cross the aortic valve and entered into LV under fluoroscopy guidance. The wire was removed and the catheter was flushed. LV pressures were obtained and pullback was performed under fluoroscopy. Catheter was manipulated to selectively engage the right coronary ostium. Right coronary angiography was performed in different angiographic projections. The JR4 diagnostic catheter was exchanged for a JL 4 diagnostic catheter over the J-wire. The wire was removed, catheter was flushed and manipulated under fluoroscopy to selectively engaged the left coronary ostium. Left coronary angioplasty was performed in different angiographic projections. Catheter was removed over the wire. Radial sheath was flushed. The right radial sheath was removed and a TR band was placed with excellent patent hemostasis was achieved. The patient tolerated the procedure well. Patient was transported back to the post catheterization holding area in stable condition. Angiographic images were reviewed in detail. HEMODYNAMICS: Aortic Pressure: 152/76 mmHg. LV pressure: 152/4 mmHg. LVEDP 10 mmHg. There was no significant gradient across the aortic valve. SELECTIVE CORONARY ARTERIOGRAPHY: LEFT MAIN: Left main is short and large caliber. Ostial left main has 30% calcific stenosis. Distal left main has tubular 40 % narrowing. It bifurcates into LAD and LCx. LEFT ANTERIOR DESCENDING CORONARY ARTERY: Proximal LAD has mild mid irregularities. Distal end of proximal LAD has 20 to 30% tubular disease. Proximal LAD gives a small septal branch and a medium size diagonal branch. Just after giving the septal branch mid LAD is 100% occluded with EDEL 0 flow. Distal LAD has right to left collaterals filling it retrogradely. Diagonal 1 is medium size and bifurcates distally. Proximal and mid diagonal has areas of haziness and 50% stenosis. LEFT CIRCUMFLEX CORONARY ARTERY: It is nondominant vessel. Left circumflex is a moderate caliber vessel. Proximal LCx has mild luminal irregularities. It gives rise to a medium size OM1 branch which appears angiographically normal. LCx continues in AV groove. Mid and distal LCx appears angiographically normal. Distal LAD gives rise to small OM branches. RIGHT CORONARY ARTERY: Dominant vessel. Proximal LCx is tortuous and has mild luminal irregularities. Mid RCA has 40 to 50% tubular disease. Distal part of mid RCA has mild luminal irregularities. Distal RCA has mild luminal irregulari ties. It bifurcates into medium sized PDA and PL branches which are 2 mm vessel. Proximal PDA just after origin has 60 to 70% narrowing. PL appears angiographically normal. IMPRESSION: 100% mid LAD stenosis EDEL 0 flow. Culprit vessel Moderate distal left main disease. 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 Enriquez Further recommendations to follow Performing Physician Javier Mijares MD, FACC, RPVI Thank you for allowing [facility] to participate in this patient's care. Feel free to reach out in case of any followup questions.
[2024-05-16] MEDS: IOPAMIDOL-370 200ML BTL INJ ONE (12:57)
[2024-05-16] MEDS ORDERED: MAG HYDROX/AL HYDROX/SIMETH 30 ML CUP PO PRN (13:05)
[2024-05-16] MEDS ORDERED: ATROPINE SULFATE 0.1 MG/ML 10ML SYRINGE IV PRN (13:05)
[2024-05-16] MEDS ORDERED: NITROGLYCERIN SL TABS 0.4 MG TAB SUBLINGUAL PRN (13:05)
[2024-05-16] MEDS ORDERED: RX INFO: IV CONTRAST WAS GIVEN 1 EACH MISC MISCELLANE PRN (13:05)
--- NOTE | 2024-05-16 13:13 | P.CARDCATH ---
Date of Procedure: 05/16/24 Description of Procedure: PERCUTANEOUS TRANSLUMINAL CORONARY ANGIOPLASTY CLINICAL INFORMATION: The patient is an 78-year-old male who presented with an acute anterior wall myocardial infarction, underwent cardiac catheterization by Dr. Mijares and was found to have totally occluded mid LAD right after the takeoff of the first septal fuel agent. Recommendations were made regarding angioplasty and stenting. The procedure as well as the risks and the complications were discussed with the patient who was in full understanding and agreement. PROCEDURE: A 6 Jamaican CLS 3.5 guiding catheter was introduced into the system. After cannulating the left main, a 0.014 BMW J-wire was advanced across the lesion and positioned distally. Following that a 2.5 x 12 mm trek balloon was advanced and inflated at 8 atmosphere. After removing the balloon a [employer] eye IVUS catheter was introduced and imaging were obtained and revealed the distal vessel of 3.0 mm in diameter with mild calcification and diffuse intimal disease. Following that a 3.0 x 23 mm Xience zuhair point stent was deployed. It was dilated at 16 graeme. Repeat IVUS imaging was performed and subsequently 3.5 x 20 mm NC trek balloon was advanced and 1 inflation at 10 graeme was done. After the last inflation, after appropriate wait, the balloon and the guidewire were withdrawn back into the guiding catheter. Images were obtained and repeated. Those images reveal stable successful stenting. At that point, the guiding catheter, the balloon, and guidewire were removed. The sheath was removed. Hemostasis was obtained with deployment of a TR band. There were no immediate complications. The patient was returned to the room in stable condition. Of note, the patient received a total of 6500 units of heparin as well as ticagrelor. His ACT was followed. There was no immediate complications. His pain almost resolved at the end of the procedure RESULTS: Successful stenting of the mid LAD with reduction of stenosis from 100% to 0% with IVUS imaging and EDEL-3 flow. The patient has diffuse disease in the diagonal branch in the OM branch, he will be treated medically for now and depending on his symptoms further recommendations will be made. RECOMMENDATIONS: The patient will continue on aspirin and ticagrelor for 1 year without any interruption in addition to aggressive coronary risks modification, attempting to maintain LDL below 70 mg/dL. The findings and recommendations were discussed with the patient and the family, they are in full understanding and agreement. Duration of sedation: 27 minutes
[2024-05-16] MEDS: SODIUM CHLORIDE 0.9% 1,000 ML in EMPTY BAG 1 BAG IV SCH (14:09)
[2024-05-16] MEDS: METOPROLOL TARTRATE 25 MG TAB PO SCH (14:09)
--- NOTE | 2024-05-16 14:41 | P.HPIM ---
History of Present Illness H&P Date: 05/16/24 Patient is a 78-year-old male with a history of prostate cancer status postradiation, dyslipidemia presenting with chest pain. Patient claims that he started having chest pain around 9 AM this morning. It started as soon as he woke up. It was midsternal, nonradiating, associated with some nausea. He was also having diaphoresis. Currently denies any symptoms. Patient presented as code STEMI. On arrival, he was slightly tachycardic and hypertensive. WBC 9.1, hemoglobin 15.5, creatinine 0.84, troponin 0.097, magnesium 2.1, total bili 1.4, glucose 181. EKG showed ST elevations in anterior leads. Chest x-ray independently interpreted, shows left lower lobe interstitial opacities. Patient taken directly to Defense Analyst. Found to have mid LAD stenosis 100%, had successful stenting, also has diffuse disease in the diagonal branch in the 1, being treated medically. Cardiology is following. Patient now admitted to medical ICU for further monitoring. Pertinent positives and negatives as discussed in HPI, a complete review of systems was performed and all other systems are negative. Patient seen and examined at bedside. Vital signs reviewed General: nontoxic, no distress, appears at stated age Derm: warm, dry Head: atraumatic, normocephalic, symmetric Eyes: EOMI, no lid lag, anicteric sclera, pupils equal round reactive to light ENT: Nose and ears atraumatic Neck: No thyromegaly, supple Mouth: no lip lesion, mucus membranes moist Cardiovascular: S1S2 reg, no murmur, no edema Lungs: clear to auscultation bilateral, no rhonchi, no rales, no wheeze, no accessory muscle use Abdominal: soft, nontender to palpation, no guarding, no appreciable organomegaly Ext: no gross muscle atrophy, muscle strength muscle strength 5 out of 5 in all 4 extremities, no contractures Neuro: CN II-XII grossly intact Psych: Alert, oriented, appropriate affect Assessment/Plan: Active: Acute STEMI CAD Status post mid LAD stent Hypertension Dyslipidemia -On aspirin 81 mg, Brilinta 90 mg twice daily, also started on atorvastatin 40 mg -Started on lisinopril 2.5 twice daily, metoprolol 25 twice daily -Echocardiogram pending -Lipid panel, A1c, TSH pending -Cardiology following -Patient to stay in medical ICU today Chronic: Prostate cancer status post radiation The patient is admitted with an anticipated greater than 2 midnight stay as inpatient status for evaluation of STEMI. Surrogate decision-maker: Spouse CODE STATUS: Full code DVT prophylaxis: Subcu heparin Anticipated discharge date: Pending clinical course Anticipated discharge place: Pending clinical course A total of 55 minutes was spent on the care of this complex patient more than 50% of the time was spent in counseling and care coordination. Past Medical History Past Medical History: Cancer Additional Past Medical History / Comment(s): prostate cancer History of Any Multi-Drug Resistant Organisms: None Reported Past Psychological History: Anxiety Smoking Status: Never smoker Past Alcohol Use History: Rare Past Drug Use History: None Reported Medications and Allergies Home Medications Medication Instructions Recorded Confirmed Type Acetaminophen Tab [Tylenol Tab] 500 mg PO Q6H PRN 05/16/24 05/16/24 History Antronex Supplement 1 tab PO DAILY 05/16/24 05/16/24 History Atorvastatin [Lipitor] 20 mg PO DAILY 05/16/24 05/16/24 History Cetirizine HCl [Zyrtec] 10 mg PO DAILY PRN 05/16/24 05/16/24 History Cholecalciferol [Vitamin D3 (25 25 mcg PO DAILY 05/16/24 05/16/24 History Mcg = 1000 Iu)] Vit C/E/Zn/Coppr/Lutein/Zeaxan 1 cap PO BID 05/16/24 05/16/24 History [Preservision Areds 2 Softgel] Allergies Allergy/AdvReac Type Severity Reaction Status Date / Time ciprofloxacin [From Cipro] Allergy Rash/Hives/ Verified 05/16/24 14:19 Swelling Physical Exam Vitals: Vital Signs Temp Pulse Resp BP Pulse Ox 05/16/24 14:00 67 19 123/88 95 05/16/24 13:30 68 17 123/88 97 05/16/24 13:20 25 H 05/16/24 11:58 106 H 16 175/112 97 05/16/24 11:52 98 F 103 H 20 177/117 96 Intake and Output 05/15/24 05/16/24 05/16/24 22:59 06:59 14:59 Intake Total 200 Balance 200 Intake: IV 200 Other: Weight 92.533 kg Results CBC & Chem 7: 05/16/24 11:50 05/16/24 11:50 Labs: Abnormal Lab Results - Last 24 Hours (Table) 05/16/24 05/16/24 Range/Units 11:50 11:50 BUN 22 H (9-20) mg/dL Glucose 181 H (74-99) mg/dL Total Bilirubin 1.4 H (0.2-1.3) mg/dL Troponin I 0.097 H* (0.000-0.034) ng/mL Thrombosis Risk Factor Assmnt - Choose All That Apply Any of the Below Risk Factors Present?: No Other Risk Factors: Yes Each Risk Factor Represents 3 Points: Age 75 years or older Other congenital or acquired thrombophilia - If yes, enter type in comment: No Thrombosis Risk Factor Assessment Total Risk Factor Score: 3 Thrombosis Risk Factor Assessment Level: Moderate Risk
[2024-05-16] MEDS: ATORVASTATIN 40 MG TAB PO SCH (19:39)
[2024-05-16] MEDS: HEPARIN SODIUM,PORCINE 5,000 UNIT/ML 1 ML VIAL SQ SCH (19:44)
[2024-05-16] MEDS: TAMSULOSIN 0.4 MG CAP.ER.24H PO SCH (19:45)
[2024-05-16] MEDS: TICAGRELOR 90 MG TAB PO SCH (19:45)
[2024-05-16] MEDS: ZOLPIDEM 5 MG TAB PO PRN (21:41)
[2024-05-16 23:13] LABS: Chol/HDL Ratio 3.49 Ratio; LDL Cholesterol,Calculated 109.9 mg/dL (0.0-131.0); VLDL Calculation 14.34 mg/dL (5.00-40.00)
[2024-05-17 06:27] LABS: African American GFR (CKD) >90 (>60 ml/min/1.73 sqM); Anion Gap 5 mmol/L; Blood Urea Nitrogen 15 mg/dL (9-20); Calcium 8.4 mg/dL (8.4-10.2); Carbon Dioxide 24 mmol/L (22-30); Chloride 106 mmol/L (98-107); Glucose 111 mg/dL (74-99); Non-African American GFR(CKD) 88 (>60 ml/min/1.73 sqM); Potassium 3.5 mmol/L (3.5-5.1); Sodium 135 mmol/L (137-145)
[2024-05-17] MEDS: POTASSIUM CHLORIDE ER 20 MEQ TAB.ER PO SCH (06:48)
[2024-05-17 06:58] LABS: Basophils % (A) 0 %; Eosinophils # (A) 0.1 k/uL (0-0.7); Eosinophils % (A) 1 %; HCT 45.3 % (39.0-53.0); HGB 15.1 gm/dL (13.0-17.5); Lymphocytes # (A) 0.9 k/uL (1.0-4.8); Lymphocytes % (A) 7 %; MCH 30.4 pg (25.0-35.0); MCHC 33.3 g/dL (31.0-37.0); MCV 91.2 fL (80.0-100.0); Mean Platelet Volume 7.6; Monocytes # (A) 0.8 k/uL (0-1.0); Monocytes % (A) 6 %; Neutrophils # (A) 10.1 k/uL (1.3-7.7); Neutrophils % (A) 84 %; Platelet Count 203 k/uL (150-450); RBC 4.97 m/uL (4.30-5.90); RDW 12.8 % (11.5-15.5); WBC 12.1 k/uL (3.8-10.6)
--- NOTE | 2024-05-17 07:54 | P.PN ---
Subjective Progress Note Date: 05/17/24 PROGRESS NOTE The patient is an 78-year-old male with a history of hyperlipidemia who presented with an acute anterior wall myocardial infarction, underwent stenting of the LAD. He is doing well this morning. He denies any chest discomfort, dizziness or palpitations. He continues to be in sinus mechanism and hemodynamically stable. Medications: Aspirin, ticagrelor 90 mg twice a day, metoprolol tartrate 25 mg twice a day, lisinopril 2.5 mg twice a day, Lipitor 40 mg daily, Flomax PHYSICAL EXAMINATION: Blood pressure 135/70 heart rate 70 LUNGS: Clear to auscultation HEART: Regular rate and rhythm, S1, S2. No S3. Systolic ejection murmur ABDOMEN: Soft, nontender, no organomegaly EXTREMETIES: No edema, right radial pulse intact LAB: Potassium 3.5, BUN 15, creatinine 0.73, hemoglobin 15.1 IMPRESSION: 1. Status post acute anterior wall myocardial infarction, status post stenting. Stable 2. Diffuse disease in the diagonal branch and the OM 3. Hyperlipidemia PLAN: 1. Continue present therapy 2. Increase physical activity and transfer to telemetry 3. Obtain an echocardiogram with Doppler 4. Depending on his progress further recommendations will be made Objective - Vital Signs Vital signs: Vital Signs Temp 98.7 F 05/17/24 04:00 Pulse 95 05/17/24 07:00 Resp 38 H 05/17/24 07:00 BP 135/75 05/17/24 07:00 Pulse Ox 93 L 05/17/24 07:00 FiO2 Intake & Output 05/16/24 05/17/24 05/17/24 18:59 06:59 18:59 Intake Total 1238 279 Output Total 650 1375 100 Balance 588 -1096 -100 Weight 92.533 kg 93.7 kg Intake: IV 200 279 Sodium Chloride 0.9% 1, 279 000 ml In Empty Bag 1 bag @ 1 ML/KG/HR 92.533 mls/ hr IV .[id number] [facility] Rx#: [id number] Intake, IV Titration 558 Amount Sodium Chloride 0.9% 1, 558 000 ml In Empty Bag 1 bag @ 1 ML/KG/HR 92.533 mls/ hr IV .[id number] [facility] Rx#: [id number] Oral 480 Output: Urine 650 1375 100 Other: Voiding Method Urinal Urinal # Voids 2 1 - Labs CBC & Chem 7: 05/17/24 05:24 05/17/24 05:24 Labs: Abnormal Lab Results - Last 24 Hours (Table) 05/16/24 05/16/24 05/17/24 Range/Units 11:50 11:50 05:24 WBC (3.8-10.6) k/uL Neutrophils # (1.3-7.7) k/uL Lymphocytes # (1.0-4.8) k/uL Sodium 135 L (137-145) mmol/L BUN 22 H (9-20) mg/dL Glucose 181 H 111 H (74-99) mg/dL Total Bilirubin 1.4 H (0.2-1.3) mg/dL Troponin I 0.097 H* (0.000-0.034) ng/mL 05/17/24 Range/Units 05:24 WBC 12.1 H (3.8-10.6) k/uL Neutrophils # 10.1 H (1.3-7.7) k/uL Lymphocytes # 0.9 L (1.0-4.8) k/uL Sodium (137-145) mmol/L BUN (9-20) mg/dL Glucose (74-99) mg/dL Total Bilirubin (0.2-1.3) mg/dL Troponin I (0.000-0.034) ng/mL
[2024-05-17] MEDS: ASPIRIN 81 MG PO SCH (08:36)
--- NOTE | 2024-05-17 10:46 | P.PN ---
Subjective Progress Note Date: 05/17/24 Hospital Course: 78-year-old male with a history of prostate cancer status postradiation, dysli pidemia presenting with chest pain. Patient presented as code STEMI. On arrival, he was slightly tachycardic and hypertensive. WBC 9.1, hemoglobin 15.5, creatinine 0.84, troponin 0.097, magnesium 2.1, total bili 1.4, glucose 181. EKG showed ST elevations in anterior leads. Chest x-ray independently interpreted, shows left lower lobe interstitial opacities. Patient taken directly to Student Officer. Found to have mid LAD stenosis 100%, had successful stenting, also has diffuse disease in the diagonal branch in the OM, being treated medically. Cardiology is following. Patient now admitted to medical ICU for further monitoring. Echocardiogram pending Subjective: Patient seen and examined at bedside. No acute events overnight. Pertinent positives and negatives as discussed above, a complete review of systems was performed and all other systems are negative. Vitals Signs Reviewed. General: Nontoxic, no distress, appears at stated age Derm: Warm, dry Head: Atraumatic, normocephalic, symmetric Eyes: EOMI, no lid lag, anicteric sclera Mouth: No lip lesion, mucus membranes moist Cardiovascular: S1S2 reg, no murmur Lungs: CTA bilateral, no rhonchi, no rales, no accessory muscle use Abdominal: Soft, nontender to palpation, no guarding, no appreciable organomegaly Ext: No gross muscle atrophy, no edema, no contractures Neuro: CN II-XI grossly intact, no focal neuro deficits Psych: Alert, oriented, appropriate affect Data Reviewed Today: Pertinent Labs: WBC 12.1, sodium 135, potassium 3.5, creatinine 0.73, A1c 6.2, total cholesterol 174, LDL 109, TSH 1.81 Imaging: No new imaging Assessment and Plan: Acute STEMI CAD Status post mid LAD stent Hypertension Dyslipidemia Prediabetes Leukocytosis, likely reactive -On aspirin 81 mg, Brilinta 90 mg twice daily, atorvastatin 40 -Cardiology note reviewed, echocardiogram pending -Continue on lisinopril 2.5 twice daily, metoprolol 25 twice daily -Patient currently being monitored in medical ICU Chronic: Prostate cancer status post radiation DVT ppx: Subcu heparin Code status: Full code Anticipated discharge place: Pending clinical course Anticipated discharge time: Pending clinical course Objective - Vital Signs Vital signs: Vital Signs Temp 97.8 F 05/17/24 08:00 Pulse 80 05/17/24 09:00 Resp 16 05/17/24 09:00 BP 112/64 05/17/24 09:00 Pulse Ox 94 L 05/17/24 08:00 FiO2 Intake & Output 05/16/24 05/17/24 05/17/24 18:59 06:59 18:59 Intake Total 1238 279 Output Total 650 1375 100 Balance 588 -1096 -100 Weight 92.533 kg 93.7 kg Intake: IV 200 279 Sodium Chloride 0.9% 1, 279 000 ml In Empty Bag 1 bag @ 1 ML/KG/HR 92.533 mls/ hr IV .[id number] [facility] Rx#: [id number] Intake, IV Titration 558 Amount Sodium Chloride 0.9% 1, 558 000 ml In Empty Bag 1 bag @ 1 ML/KG/HR 92.533 mls/ hr IV .[id number] [facility] Rx#: [id number] Oral 480 Output: Urine 650 1375 100 Other: Voiding Method Urinal Urinal Urinal # Voids 2 1 - Labs CBC & Chem 7: 05/17/24 05:24 05/17/24 05:24 Labs: Abnormal Lab Results - Last 24 Hours (Table) 05/16/24 05/16/24 05/17/24 Range/Units 11:50 11:50 05:24 WBC (3.8-10.6) k/uL Neutrophils # (1.3-7.7) k/uL Lymphocytes # (1.0-4.8) k/uL Sodium (137-145) mmol/L BUN 22 H (9-20) mg/dL Glucose 181 H (74-99) mg/dL Hemoglobin A1c 6.2 H (<=6.0) % Total Bilirubin 1.4 H (0.2-1.3) mg/dL Troponin I 0.097 H* (0.000-0.034) ng/mL 05/17/24 05/17/24 Range/Units 05:24 05:24 WBC 12.1 H (3.8-10.6) k/uL Neutrophils # 10.1 H (1.3-7.7) k/uL Lymphocytes # 0.9 L (1.0-4.8) k/uL Sodium 135 L (137-145) mmol/L BUN (9-20) mg/dL Glucose 111 H (74-99) mg/dL Hemoglobin A1c (<=6.0) % Total Bilirubin (0.2-1.3) mg/dL Troponin I (0.000-0.034) ng/mL
[2024-05-17 11:52] VITALS: BMI 28.8
--- NOTE | 2024-05-17 12:16 | CA ---
Transthoracic Echo Report Name: Jan Staples Age: 78 Gender: M : 1945 Exam Date: 05/17/2024 09:18 Exam Location: [facility] Ht (in): 71 Wt (lb): 204 Ordering Physician: Javier Mijares MD ([id number]) Attending/Referring Phys: Transfer Table Operator Helper Procedure CPT: Indications: anteroseptal stemi Cardiac Hx: Technical Quality: Fair Contrast 1: Definity Total Dose (mL): 2 Contrast 2: Total Dose (mL): MEASUREMENTS (Male / Female) Normal Values 2D ECHO LV Diastolic Diameter PLAX 3.4 cm 4.2 - 5.9 / 3.9 - 5.3 cm LV Systolic Diameter PLAX 2.6 cm IVS Diastolic Thickness 1.5 cm 0.6 - 1.0 / 0.6 - 0.9 cm LVPW Diastolic Thickness 1.6 cm 0.6 - 1.0 / 0.6 - 0.9 cm LV Relative Wall Thickness 0.9 LV Diastolic Volume MOD BP 96.5 cm??? 67 - 155 / 56 - 104 cm??? LV Systolic Volume MOD BP 50.8 cm??? 22 - 58 / 19 - 49 cm??? LV Ejection Fraction MOD BP 47.3 % >= 55 % LV Cardiac Index MOD BP 1493.6 cm???/min???m??? LV Diastolic Volume MOD 4C 97.6 cm??? LV Systolic Volume MOD 4C 64.3 cm??? LV Ejection Fraction MOD 4C 34.1 % LV Cardiac Index MOD 4C 1087.2 cm???/min???m??? LV Diastolic Length 4C 8.0 cm LV Systolic Length 4C 7.0 cm LV Diastolic Volume MOD 2C 93.1 cm??? LV Systolic Volume MOD 2C 39.3 cm??? LV Ejection Fraction MOD 2C 57.8 % LV Cardiac Index MOD 2C 1758.1 cm???/min???m??? LV Diastolic Length 2C 7.5 cm LV Systolic Length 2C 6.8 cm LA Volume 43.9 cm??? 18 - 58 / 22 - 52 cm??? LA Volume Index 20.2 cm???/m??? 16 - 28 cm???/m??? M-MODE Aortic Root Diameter MM 3.5 cm LA Systolic Diameter MM 2.5 cm LA Ao Ratio MM 0.7 DOPPLER AV Peak Velocity 121.8 cm/s AV Peak Gradient 5.9 mmHg AV Mean Velocity 95.1 cm/s AV Mean Gradient 3.9 mmHg AV Velocity Time Integral 22.4 cm LVOT Peak Velocity 100.6 cm/s LVOT Peak Gradient 4.0 mmHg LVOT Velocity Time Integral 21.4 cm MV Area PHT 3.3 cm??? Mitral E Point Velocity 38.6 cm/s Mitral A Point Velocity 87.8 cm/s Mitral E to A Ratio 0.4 MV Deceleration Time 231.4 ms MV E' Velocity 3.8 cm/s Mitral E to MV E' Ratio 10.2 TR Peak Velocity 210.4 cm/s TR Peak Gradient 17.7 mmHg Right Ventricular Systolic Press 22.7 mmHg FINDINGS Left Ventricle Moderately increased septal wall thickness. Mildly decreased left ventricular ejection fraction. Hypokinetic septum. Hypokinetic anterior wall. Left ventricular ejection fraction is estimated at 35-40%. Grade 1 diastolic dysfunction. Right Ventricle Normal right ventricular size and function. Right ventricular systolic pressure within normal limits. Right Atrium Normal right atrial size. Left Atrium Normal left atrial size. Mitral Valve Structurally normal mitral valve. Mitral valve thickened. Mild mitral annular calcification. Mild mitral regurgitation. Aortic Valve No aortic valve stenosis or regurgitation. Tricuspid Valve Structurally normal tricuspid valve. Mild tricuspid regurgitation. Pulmonic Valve Structurally normal pulmonic valve. Pericardium No pericardial effusion. Aorta Normal size aortic root and proximal ascending aorta. CONCLUSIONS Impaired LV function with EF between 35 to 40% No significant valvular abnormalities beside mild mitral and tricuspid regurgitation Previewed by: Dr. Wolf Pearce MD (Electronically Signed) Final Date: 17 May 2024 12:15
[2024-05-18 09:33] LABS: Basophils % (A) 0 %; Eosinophils # (A) 0.3 k/uL (0-0.7); Eosinophils % (A) 3 %; HCT 44.3 % (39.0-53.0); HGB 14.3 gm/dL (13.0-17.5); Lymphocytes # (A) 0.8 k/uL (1.0-4.8); Lymphocytes % (A) 8 %; MCH 29.6 pg (25.0-35.0); MCHC 32.4 g/dL (31.0-37.0); MCV 91.4 fL (80.0-100.0); Mean Platelet Volume 7.2; Monocytes # (A) 0.8 k/uL (0-1.0); Monocytes % (A) 8 %; Neutrophils % (A) 78 %; Platelet Count 200 k/uL (150-450); RBC 4.84 m/uL (4.30-5.90); RDW 12.8 % (11.5-15.5)
[2024-05-18 09:34] LABS: African American GFR (CKD) >90 (>60 ml/min/1.73 sqM); Anion Gap 5 mmol/L; Blood Urea Nitrogen 19 mg/dL (9-20); Calcium 8.7 mg/dL (8.4-10.2); Carbon Dioxide 25 mmol/L (22-30); Chloride 106 mmol/L (98-107); Glucose 110 mg/dL (74-99); Magnesium 2.1 mg/dL (1.6-2.3); Non-African American GFR(CKD) 80 (>60 ml/min/1.73 sqM); Potassium 3.7 mmol/L (3.5-5.1); Sodium 136 mmol/L (137-145)
--- NOTE | 2024-05-18 12:02 | P.DS ---
Providers Date of admission: 05/16/24 12:01 Expected date of discharge: 05/18/24 Attending physician: Zeeshan Salazar MD Consults: 05/16/24 12:07 Consult Physician Stat Consulting Provider: Javier Mijares Consult Reason/Comments: STEMI Do you want consulting provider notified?: Already Contacted 05/16/24 13:05 Consult Physician Routine Consulting Provider: [facility] Consult Reason/Comments: Post Interventional Patient Do you want consulting provider notified?: Already Contacted Primary care physician: Wayne Villeda [facility] Course: Discharge Diagnosis: Acute STEMI CAD Status post mid LAD stent Ischemic cardiomyopathy, EF 35 to 40% Hypertension Dyslipidemia Prediabetes Leukocytosis, likely reactive Hospital Course: 78-year-old male with a history of prostate cancer status postradiation, dyslipidemia presenting with chest pain. Patient presented as code STEMI. On arrival, he was slightly tachycardic and hypertensive. WBC 9.1, hemoglobin 15.5, creatinine 0.84, troponin 0.097, magnesium 2.1, total bili 1.4, glucose 181. EKG showed ST elevations in anterior leads. Chest x-ray independently interpreted, shows left lower lobe interstitial opacities. Patient taken directly to Medical Laboratory Specialist. Found to have mid LAD stenosis 100%, had successful stenting, also has diffuse disease in the diagonal branch in the OM, being treated medically. Cardiology is following. Patient now admitted to medical ICU for further monitoring. Patient is stable. Echocardiogram showed LVEF of 35 to 40%, grade 1 diastolic dysfunction, no significant valvular abnormalities beside mild mitral and tricuspid regurgitation. Outpatient follow-up with cardiology, continue statin, dual antiplatelet therapy, also on guideline directed medical therapy for heart failure. Patient seen and examined at bedside. Vital signs reviewed and stable. General: Nontoxic, no distress, appears at stated age Derm: Warm, dry Head: Atraumatic, normocephalic, symmetric Eyes: EOMI, no lid lag, anicteric sclera Mouth: No lip lesion, mucus membranes moist Cardiovascular: S1S2 reg, no murmur Lungs: CTA bilateral, no rhonchi, no rales, no accessory muscle use Abdominal: Soft, nontender to palpation, no guarding, no appreciable organomegaly Ext: No gross muscle atrophy, no edema, no contractures Neuro: CN II-XI grossly intact, no focal neuro deficits Psych: Alert, oriented, appropriate affect A total of 33 minutes of time were spent preparing this complex discharge summary. Patient was discharged on 05/18/24 at 1159. Patient Condition at Discharge: Stable Plan - Discharge Summary Discharge Rx Participant: Yes New Discharge Prescriptions: New Spironolactone [Aldactone] 25 mg PO DAILY #60 tab Ticagrelor [Brilinta] 90 mg PO BID #120 tab Tamsulosin [Flomax] 0.4 mg PO HS cap Nitroglycerin Sl Tabs [Nitrostat] 0.4 mg SUBLINGUAL Q5M PRN #30 tab PRN Reason: Chest Pain Metoprolol Succinate (ER) [Toprol XL] 25 mg PO DAILY #60 tab lisinopriL [Zestril] 5 mg PO BID #120 tab Aspirin 81 mg PO DAILY #60 tab Atorvastatin [Lipitor] 40 mg PO DAILY #60 tab Continue Acetaminophen Tab [Tylenol] 500 mg PO Q6H PRN PRN Reason: Pain Or Fever > 100.5 Vit C/E/Zn/Coppr/Lutein/Zeaxan [Preservision Areds 2 Softgel] 1 cap PO BID Cetirizine HCl [Zyrtec] 10 mg PO DAILY PRN PRN Reason: Allergy Symptoms Cholecalciferol [Vitamin D3 (25 Mcg = 1000 Iu)] 25 mcg PO DAILY Discontinued Atorvastatin [Lipitor] 20 mg PO DAILY Antronex Supplement 1 tab PO DAILY Discharge Medication List Acetaminophen Tab [Tylenol] 500 mg PO Q6H PRN 05/16/24 [History] Cetirizine HCl [Zyrtec] 10 mg PO DAILY PRN 05/16/24 [History] Cholecalciferol [Vitamin D3 (25 Mcg = 1000 Iu)] 25 mcg PO DAILY 05/16/24 [History] Vit C/E/Zn/Coppr/Lutein/Zeaxan [Preservision Areds 2 Softgel] 1 cap PO BID 05/16/24 [History] Aspirin 81 mg PO DAILY #60 tab 05/18/24 [Rx] Atorvastatin [Lipitor] 40 mg PO DAILY #60 tab 05/18/24 [Rx] Metoprolol Succinate (ER) [Toprol XL] 25 mg PO DAILY #60 tab 05/18/24 [Rx] Nitroglycerin Sl Tabs [Nitrostat] 0.4 mg SUBLINGUAL Q5M PRN #30 tab 05/18/24 [Rx] Spironolactone [Aldactone] 25 mg PO DAILY #60 tab 05/18/24 [Rx] Tamsulosin [Flomax] 0.4 mg PO HS cap 05/18/24 [Rx] Ticagrelor [Brilinta] 90 mg PO BID #120 tab 05/18/24 [Rx] lisinopriL [Zestril] 5 mg PO BID #120 tab 05/18/24 [Rx] Follow up Appointment(s)/Referral(s): Javier Mijares MD [Medical Doctor] - 1 Week Wayne Hall MD [Primary Care Provider] - 1-2 days Patient Instructions/Handouts: Heart Failure (DC), Heart Attack (DC), Heart Healthy Diet (DC) Activity/Diet/Wound Care/Special Instructions: Please see your PCP and cardiology. Discharge Disposition: HOME SELF-CARE
[2024-05-18] MEDS: SPIRONOLACTONE 25 MG TAB PO SCH (12:41)
[2024-05-18 12:42] VITALS: BP 112/72; PULSE 64; RESP 15; TEMP 97.6
--- NOTE | 2024-05-18 14:51 | P.PN ---
Subjective Progress Note Date: 05/18/24 PROGRESS NOTE The patient is an 78-year-old male with a history of hyperlipidemia who presented with an acute anterior wall myocardial infarction, underwent stenting of the LAD. He is doing well this morning. He denies any chest discomfort, dizziness or palpitations. He continues to be in sinus mechanism and hemodynamically stable. LAB: Potassium 3.5, BUN 15, creatinine 0.73, hemoglobin 15.1 05/18 Patient has been transferred out of the intensive care unit and seen today on the cardiac stepdown unit. Patient denies any chest pain, shortness of breath, lightheadedness or dizziness. Patient has been ambulating in his room and in the hallway without difficulty. He is very anxious to be discharged home today. Blood pressure 112/72, heart rate 64, pulse ox 97% on room air. Hemoglobin is 14.3. Creatinine 0.9 potassium 3.7. Medications: Aspirin, ticagrelor 90 mg twice a day, metoprolol tartrate 25 mg twice a day, lisinopril 2.5 mg twice a day, Lipitor 40 mg daily, Flomax PHYSICAL EXAMINATION: Blood pressure 135/70 heart rate 70 LUNGS: Clear to auscultation HEART: Regular rate and rhythm, S1, S2. No S3. Systolic ejection murmur ABDOMEN: Soft, nontender, no organomegaly EXTREMETIES: No edema, right radial pulse intact IMPRESSION: 1. Status post acute anterior wall myocardial infarction, status post stenting. Stable 2. Diffuse disease in the diagonal branch and the OM 3. Hyperlipidemia PLAN: Continue present therapy with the following changes: Change metoprolol tartrate to succinate 25 mg daily Change lisinopril to 5 mg once daily Add spironolactone 25 mg daily Continue patient on Brilinta 90 mg twice daily, aspirin 81 mg daily, Lipitor 40 mg daily Patient is cleared from cardiology for discharge and may follow-up in the office with Dr. Mijares in 1 to 2 weeks. Nurse practitioner note has been reviewed, I agree with documented findings and plan of care. Patient was seen and examined. Objective - Vital Signs Vital signs: Vital Signs Temp 97.7 F 05/18/24 08:47 Pulse 73 05/18/24 08:47 Resp 16 05/18/24 08:47 BP 123/67 05/18/24 08:47 Pulse Ox 96 06/18/24 08:56 FiO2 Intake & Output 05/17/24 05/18/24 05/18/24 18:59 06:59 18:59 Intake Total 750 500 180 Output Total 100 Balance 650 500 180 Weight 93.7 kg Intake: Oral 750 500 180 Output: Urine 100 Other: Voiding Method Urinal Urinal Urinal # Voids 3 1 # Bowel Movements 0 - Labs CBC & Chem 7: 05/18/24 09:02 05/18/24 09:02 Labs: Abnormal Lab Results - Last 24 Hours (Table) 05/18/24 05/18/24 Range/Units 09:02 09:02 Lymphocytes # 0.8 L (1.0-4.8) k/uL Sodium 136 L (137-145) mmol/L Glucose 110 H (74-99) mg/dL
[2024-05-18] MEDS ORDERED: lisinopriL 5 MG TAB PO SCH (21:00)
[2024-05-19] MEDS ORDERED: METOPROLOL SUCCINATE (ER) 25 MG TAB.ER.24H PO SCH (09:00)
== END 2024-05-18 12:43 | disposition home or self-care (01) | DRG 322 ==
LOC: EC 11:46 → 2SICU 12:01 → 3SCARD 05-17 18:13
PROVIDERS: ADMIT Student in an Organized Health Care Education/Training Program; ATTEND Student in an Organized Health Care Education/Training Program
PROC: 027034Z Dilation of Coronary Artery, One Artery with Drug-eluting Intraluminal Device, Percutaneous Approach (ICD-10-PCS; principal; 2024-05-16 11:57)
PROC: B240ZZ3 Ultrasonography of Single Coronary Artery, Intravascular (ICD-10-PCS; 2024-05-16 11:57)
PROC: 4A023N7 Measurement of Cardiac Sampling and Pressure, Left Heart, Percutaneous Approach (ICD-10-PCS; 2024-05-16 11:57)
PROC: B2111ZZ Fluoroscopy of Multiple Coronary Arteries using Low Osmolar Contrast (ICD-10-PCS; 2024-05-16 11:57)
DX: I21.09 ST elevation (STEMI) myocardial infarction involving other coronary artery of anterior wall (principal); I10 Essential (primary) hypertension; D72.828 Other elevated white blood cell count; I25.10 Atherosclerotic heart disease of native coronary artery without angina pectoris; E78.00 Pure hypercholesterolemia, unspecified; R73.03 Prediabetes; I25.5 Ischemic cardiomyopathy; Z92.3 Personal history of irradiation; Z79.02 Long term (current) use of antithrombotics/antiplatelets; Z79.899 Other long term (current) drug therapy; Z85.46 Personal history of malignant neoplasm of prostate; Z88.1 Allergy status to other antibiotic agents
CPT/HCPCS: 36415; 71045; 76937; 80048; 80053; 80061; 83036; 83735; 84443; 84484; 85025; 92978; 93005; 93306; 93458; 94760; 96374; 99291

== ENCOUNTER → 2025-02-24 | Outpatient (CLI) | payer MEDICARE, OTHER ==
--- NOTE | 2025-02-24 08:37 | CT ---
EXAMINATION TYPE: CT abdomen pelvis wo con CT DLP: 1049 mGycm, Automated exposure control for dose reduction was used. DATE OF EXAM: 02/24/2025 8:23 AM COMPARISON: CT chest abdomen pelvis 04/03/2017 CLINICAL INDICATION:Male, 79 years old with history of R10.9 unspecified abdominal pain; Left flank p ain, unspecified abdominal pain TECHNIQUE: Standard CT of the abdomen and pelvis without IV or oral contrast. Lack of IV or oral co ntrast limits evaluation of solid and hollow organ viscera. Coronal and sagittal reformats were perfo rmed. FINDINGS: LOWER CHEST: Similar bibasilar scarring particularly changes. Stable left lower lobe 5.4 mm pulmonary nodule. Mild cardiomegaly. ABDOMEN LIVER: Diffusely hypoattenuating parenchyma. GALLBLADDER AND BILE DUCTS: Unremarkable noncontrast appearance PANCREAS: Unremarkable noncontrast appearance SPLEEN: Unremarkable noncontrast appearance ADRENAL GLANDS: Unremarkable noncontrast appearance. KIDNEYS AND URETERS: No evidence of hydronephrosis or renal calculus. No periureteral and perinephric stranding. PELVIS BLADDER: There is a 3 mm calculus in the left urinary bladder near the ureterovesical junction. REPRODUCTIVE: Prostate is enlarged in size measuring 5.2 cm in transverse dimension. ABDOMEN & PELVIS STOMACH AND BOWEL: Small hiatal hernia, duodenum is unremarkable. Extensive distal colonic diverticul osis without evidence for acute diverticulitis. Mild to moderate stool is present within the colon. N o evidence of bowel obstruction. PERITONEUM: No evidence of pneumoperitoneum or free fluid. VASCULATURE: Mild atherosclerotic calcifications are present throughout the abdominal aorta and its b ranches. No evidence of aortic aneurysm. Few pelvic phleboliths. MUSCULOSKELETAL: No acute osseous abnormalities. Degenerative changes of the bilateral SI joints. Mul tilevel degenerative disc disease. LYMPH NODES: No gross evidence for lymphadenopathy. SOFT TISSUE/ABDOMINAL WALL: Tiny fat filled umbilical hernia. Fat filled right direct inguinal hernia . Additional right indirect inguinal hernia containing the appendix. Patulous left inguinal ring. IMPRESSION: 1. 3 mm calculus within the left aspect of the urinary bladder near the ureterovesical junction like ly representing recently passed calculus from the ureter in the setting of reported left flank pain. No hydronephrosis. 2. Fat filled right direct inguinal hernia with additional right indirect inguinal hernia containing the appendix. 3. Distal colonic diverticulosis without evidence for acute diverticulitis. 4. Hepatic steatosis. 5. Similar bibasilar scarring with stable left lower lobe 5.4 mm pulmonary nodule. [facility], , 02/24/2025 8:35 AM
== END | disposition home or self-care (01) ==
LOC: RADCTMAIN 07:58
PROVIDERS: ATTEND Family Medicine
DX: K40.90 Unilateral inguinal hernia, without obstruction or gangrene, not specified as recurrent (principal); K57.30 Diverticulosis of large intestine without perforation or abscess without bleeding; K76.0 Fatty (change of) liver, not elsewhere classified; J98.4 Other disorders of lung; R91.1 Solitary pulmonary nodule; N21.0 Calculus in bladder
CPT/HCPCS: 74176